=== PATIENT | female | born 1945 | race Caucasian/White ===

== ENCOUNTER 2016-05-14 09:52 | Emergency (ER) | payer OTHER ==
[~2016-05-14] VITALS: Ht 157.5 cm; Wt 88.6 kg
[~2016-05-14 09:52] MED LIST: ACTIVELLA 0.5-1 EACH PO; ADVAIR 500/501 DISK IH; ATIVAN0.5 MG PO; ATROVENT 0.03%30 ML BOTH NARES; BYSTOLIC2.5 MG PO; CO Q-10200 MG PO; CO Q-1050 MG PO; COZAAR100 MG PO; ELIQUIS5 MG PO; FLEXERIL10 MG PO; FLUOXETINE HCL40 MG PO; GABAPENTIN400 MG PO; HYDROCODON-ACE1 EAC7 PO; KLONOPIN0.5 M1 PO; LORAZEPAM0.5 MG PO; LOSARTAN POTASS50 MG PO; LOSARTAN-HCTZ1 EAC1 PO; LYRICA75 MG PO; MECLIZINE HCL25 M2 PO; MELOXICAM7.5 MG PO; MULTIVITAMIN1 EAC2 PO; NABUMETONE750 MG PO; OMEPRAZOLE20 MG PO; OMEPRAZOLE40 M1 PO; ONE-A-DAY ESSE1 EAC1 PO; OXYBUTYNIN CHLOR5 M1 PO; PRAVASTATIN SOD40 MG PO; PREMPRO 0.621 TABLET PO; PRILOSEC20 MG PO; PROPOXYPHEN-AP1 EAC2 PO; PROZAC20 MG PO; PROZAC40 MG PO; TYLENOL EXTRA500 MG PO; VENTOLIN HFA18 GM IH; VITAMIN C1000 MG PO; VITAMIN D400 UNI4 PO; VITAMIN E400 UNI6 PO; XARELTO20 MG PO
[2016-05-14] MEDS ORDERED: WARFARIN SODIUM3 MG PO (11:01)
[2016-05-14] MEDS ORDERED: WARFARIN SODIUM4 MG PO ×2 (11:02)
[2016-05-14 11:12] LABS: INTER. NORMALIZED RATIO 1.9; PROTHROMBIN TIME 19.6 (9.2-11.2); PTT 41.8 (25-32)
[2016-05-14 11:45] VITALS: BP 109/75
== END 2016-05-14 12:09 | disposition home or self-care (01) ==
LOC: EME 09:52
PROC: 0HQ1XZZ Repair Face Skin, External Approach (ICD-10-PCS; principal; 2016-05-14)
DX: S09.8XXA Other specified injuries of head, initial encounter (principal); S01.112A Laceration without foreign body of left eyelid and periocular area, initial encounter; W01.198A Fall on same level from slipping, tripping and stumbling with subsequent striking against other object, initial encounter; Y92.009 Unspecified place in unspecified non-institutional (private) residence as the place of occurrence of the external cause; I10 Essential (primary) hypertension; J45.909 Unspecified asthma, uncomplicated; G89.29 Other chronic pain; Z79.01 Long term (current) use of anticoagulants
CPT/HCPCS: 70450; 85610; 85730; 99281; 99283

== ENCOUNTER 2017-06-29 12:25 | Emergency (ER) | payer OTHER ==
[~2017-06-29] VITALS: Ht 157.5 cm; Wt 88.6 kg
[~2017-06-29 12:25] MED LIST changes: +WARFARIN SODIUM3 MG PO; +WARFARIN SODIUM4 MG PO
[2017-06-29 15:30] VITALS: BP 133/81
== END 2017-06-29 15:59 | disposition home or self-care (01) ==
LOC: EME 12:25
DX: M54.5 Low back pain (principal); S06.0X0A Concussion without loss of consciousness, initial encounter; W10.9XXA Fall (on) (from) unspecified stairs and steps, initial encounter; M43.16 Spondylolisthesis, lumbar region; I10 Essential (primary) hypertension; J45.909 Unspecified asthma, uncomplicated; Z79.01 Long term (current) use of anticoagulants; Z98.1 Arthrodesis status
CPT/HCPCS: 70450; 72100; 72170; 99281; 99284